=== PATIENT | male | born 2000 | race Hispanic/Latino ===

== ENCOUNTER 2021-07-09 21:34 | Emergency (ER) | payer OTHER ==
[~2021-07-09] VITALS: Ht 172.7 cm; Wt 113.4 kg
[2021-07-09] MEDS ORDERED: Morphine 4mg Syringe 4 MG/ML INJ IM STA (23:04)
[2021-07-09] MEDS ORDERED: ONDANSETRON ODT4 MG PO (23:25)
[2021-07-09] MEDS ORDERED: ACETAMINOPHEN-1 EAC4 PO (23:25)
== END 2021-07-10 00:20 | disposition home or self-care (01) ==
LOC: ER 22:08
DX: S42.391A Other fracture of shaft of right humerus, initial encounter for closed fracture (principal); V86.65XA Passenger of 3- or 4- wheeled all-terrain vehicle (ATV) injured in nontraffic accident, initial encounter; Y92.89 Other specified places as the place of occurrence of the external cause
CPT/HCPCS: 29125; 73060; 99283; J2270